=== PATIENT | male | born 1945 | race Caucasian/White ===

== ENCOUNTER 2019-05-09 07:26 | Outpatient (CLI) | payer MEDICARE, BC ==
--- NOTE | 2019-05-09 08:58 | CT ---
CT THORAX NONCONTRAST: (Low dose screening) DATE: 05/09/2019 HISTORY: 74-year-old male with history of smoking for 50 years. COMPARISON: none FINDINGS: There are numerous tiny noncalcified bilateral pulmonary nodules scattered bilaterally in the upper a nd lower lobes, at least 16. Most are benign based on their very small size (a few millimeters) and/or shapes. A few are intrapulmonary lymph nodes. One of the larger 1's, measuring approximately 1 2 x 12 x 5 mm at the central base of the left lower lobe, broadly abutting the left hemidiaphragm, appears benign because of its shape. A couple of pulmonary nodules that appear to have irregular lisandro ins on the axial images, one in each upper lobe anterior segment, appear to be flattened in the craniocaudal dimension on the coronal and sagittal images, and therefore do not appear suspicious. Th ere are numerous tiny subpleural blebs. A few small right basilar bullae. No cardiomegaly. Ectasia and tortuosity of thoracic aorta. Heavily calcified LAD, ramus intermedius, left main, LCx, and RCA. No mediastinal lymphadenopathy. Trachea and main bronchi are patent and clear. IMPRESSION: 1) lung rads category 2. Benign appearance. Less than 1% chance of malignancy. 2) at least mild paraseptal emphysema. 3) recommend continued annual low dose screening CT. 4) coronary atherosclerotic disease due to calcified coronary lesion ICD-10: I 25.84
== END 2019-05-09 07:27 | disposition home or self-care (01) ==
LOC: CT 07:26
PROVIDERS: ATTEND Family Medicine Sports Medicine
DX: Z87.891 Personal history of nicotine dependence (principal); I25.10 Atherosclerotic heart disease of native coronary artery without angina pectoris
CPT/HCPCS: G0297

== ENCOUNTER 2021-09-20 07:21 | Outpatient (CLI) | payer MEDICARE, BC ==
[2021-09-20] MEDS ORDERED: Iopamidol-370 76% 500 ML 1 ML ONE (10:28)
== END 2021-09-20 07:22 | disposition home or self-care (01) ==
LOC: BICCT 07:21
PROVIDERS: ATTEND Urology
DX: C67.4 Malignant neoplasm of posterior wall of bladder (principal)
CPT/HCPCS: 74178; Q9967

== ENCOUNTER 2024-08-22 14:27 | Inpatient (IN) | payer BC, MEDICARE ==
[~2024-08-22 14:27] MED LIST: Iopamidol-370 76% 500 ML MDV (1 ML CHARGE) ONE
[2024-08-22 16:05] LABS: #Basophils 0.03 10x3/uL (0.0-0.2); %Basophils 0.5 % (0.0-1.0); %Eosinophils 8.2 % (0.0-10.0); %Lymphocytes 13.9 % (21.0-51.0); %Monocytes 8.2 % (0.0-10.0); %Neutrophils 68.9 % (42.0-75.0); Hemoglobin 12.1 g/dL (14.0-18.0); Mean Corpuscular HGB CONC 31.8 g/dL (32.0-36.0); Mean Corpuscular Hemoglobin 30.7 pg (27.0-31.0); Mean Corpuscular Volume 96.4 fL (78.0-98.0); Platelet Count 190 10x3/uL (130-400); RBC Distribution Width 15.3 % (11.5-14.5); Red Blood Cell (RBC) Count 3.94 mill/uL (4.70-6.10)
[2024-08-22 16:14] LABS: ALT (SGPT) 19 U/L (8-55); AST (SGOT) 17 U/L (5-34); Albumin 3.6 g/dL (3.4-4.8); Alkaline Phosphatase 98 U/L (40-110); Anion Gap 13 mmol/L (10-20); BUN (Urea Nitrogen) 21 mg/dL (8.4-25.7); Bilirubin, Total 0.3 mg/dL (0.2-1.2); Calc. Creatinine Clearance 0 mL/min (70-130); Calcium 9.3 mg/dL (7.8-10.44); Carbon Dioxide 24 mmol/L (23-31); Chloride 107 mmol/L (98-107); Estimated GFR 66; Globulin 4.2 g/dL (2.4-3.5); Glucose 108 mg/dL (83-110); Potassium 4.6 mmol/L (3.5-5.1); Protein, Total 7.8 g/dL (5.8-8.1); Sodium 139 mmol/L (136-145)
[2024-08-22 16:18] LABS: INR-International Normal Ratio 1.1; PTT 33.3 sec (22.9-36.1); Prothrombin Time 14.6 sec (12.0-14.7)
[2024-08-22 16:20] LABS: Troponin I 0.058 ng/mL (< 0.028)
[2024-08-22] MEDS ORDERED: Acetaminophen 650 MG Suppository PR PRN (16:26)
[2024-08-22] MEDS ORDERED: hydrALAZINE 20 MG/ML VIAL SLOW IVP PRN (16:26)
[2024-08-22] MEDS ORDERED: Acetaminophen 325 MG TAB PO PRN (16:26)
[2024-08-22] MEDS ORDERED: Labetalol HCl 100 MG/20 ML VIAL SLOW IVP PRN (16:26)
[2024-08-22] MEDS ORDERED: Ondansetron ODT 4 MG TAB PO PRN (16:26)
[2024-08-22 16:47] LABS: Magnesium 2.2 mg/dL (1.6-2.6)
[2024-08-22] MEDS: Furosemide 20 MG (2 mL) VIAL SLOW IVP SCH (19:29)
[2024-08-22 20:05] LABS: Bacteria/HPF None Seen HPF (None Seen); Bilirubin Negative (Negative); Blood, Urine 1+ (Negative); CAUTI Indications for Culture Alt mental st,lethar; Clarity Clear (Clear); Glucose, Urine (Dipstick) Normal (Negative); Ketone, Urine Negative (Negative); Leukocyte Negative Leu/uL (Negative); Nitrite Negative (Negative); Protein, Urine (Dipstick) Negative (Neg-Trace); Specific Gravity, Urine 1.033 (1.002-1.036); Squamous Epithelial 0-3 HPF (0-3); Urobilinogen Normal mg/dL (Less than 2)
[2024-08-22 20:11] LABS: Urine Culture Reflex No No
[2024-08-22] MEDS: Amiodarone 200 MG TAB PO SCH (20:45)
[2024-08-22] MEDS: Metoprolol Tartrate 25 MG TAB PO SCH (20:45)
[2024-08-22] MEDS: Famotidine 20 MG TAB PO SCH (20:46)
[2024-08-22] MEDS: Cilostazol 100 MG TAB PO SCH (20:47)
[2024-08-22 21:10] VITALS: BMI 26.0
[2024-08-23 00:34] LABS: Hematocrit 34.7 % (42.0-52.0); Hemoglobin 11.5 g/dL (14.0-18.0)
[2024-08-23 01:57] LABS: Bacteria/HPF None Seen HPF (None Seen); Bilirubin Negative (Negative); Blood, Urine 3+ (Negative); CAUTI Indications for Culture Acute Hematuria; Clarity Extra Turbid (Clear); Glucose, Urine (Dipstick) Normal (Negative); Ketone, Urine Negative (Negative); Leukocyte 25 Leu/uL (Negative); Nitrite Negative (Negative); Protein, Urine (Dipstick) 100 mg/dL (Neg-Trace); RBC/HPF Greater than 50 HPF (0-3); Specific Gravity, Urine 1.013 (1.002-1.036); Squamous Epithelial None Seen HPF (0-3); Urobilinogen Normal mg/dL (Less than 2); pH, Urine 6.5 (5.0-9.0)
[2024-08-23 02:00] LABS: Urine Culture Reflex No No
[2024-08-23 03:49] LABS: #Basophils 0.04 10x3/uL (0.0-0.2); %Basophils 0.6 % (0.0-1.0); %Lymphocytes 11.4 % (21.0-51.0); %Monocytes 7.8 % (0.0-10.0); %Neutrophils 71.9 % (42.0-75.0); Hemoglobin 11.2 g/dL (14.0-18.0); Mean Corpuscular HGB CONC 32.9 g/dL (32.0-36.0); Mean Corpuscular Hemoglobin 30.1 pg (27.0-31.0); Mean Corpuscular Volume 91.4 fL (78.0-98.0); Mean Platelet Volume 8.9 fL (7.4-10.4); Platelet Count 166 10x3/uL (130-400); RBC Distribution Width 15.3 % (11.5-14.5); Red Blood Cell (RBC) Count 3.72 mill/uL (4.70-6.10)
[2024-08-23 04:10] LABS: Hemoglobin A1c 5.6 % (4.0-6.0)
[2024-08-23 04:11] LABS: Troponin I 0.073 ng/mL (< 0.028)
[2024-08-23 04:13] LABS: Anion Gap 13 mmol/L (10-20); BUN (Urea Nitrogen) 18 mg/dL (8.4-25.7); Calc. Creatinine Clearance 72 mL/min (70-130); Carbon Dioxide 20 mmol/L (23-31); Cardiac Risk 2.2 (Less than 4.5); Chloride 107 mmol/L (98-107); Cholesterol 82 mg/dl (< 200 Desired); Estimated GFR 71; Glucose 112 mg/dL (83-110); HDL Cholesterol 38 mg/dL (>60 Neg Risk); LDL Cholesterol, Calculated 31 mg/dL; Magnesium 2.1 mg/dL (1.6-2.6); Potassium 3.7 mmol/L (3.5-5.1); Sodium 136 mmol/L (136-145); Triglycerides 66 mg/dL (Less than 150)
[2024-08-23] MEDS: Furosemide 20 MG (2 mL) VIAL SLOW IVP SCH (06:15)
[2024-08-23] MEDS: Clopidogrel Bisulfate 75 MG TAB PO SCH (09:50)
[2024-08-23] MEDS: Atorvastatin Calcium 40 MG TAB PO SCH (09:50)
[2024-08-23] MEDS: Tamsulosin HCl 0.4 MG CAP PO SCH (09:50)
[2024-08-23] MEDS: Aspirin 81 mg Enteric Coated Tablet PO SCH (09:50)
[2024-08-23] MEDS: Enoxaparin 100 MG (1 mL) SYRINGE SC SCH ×2 (10:51→20:32)
[2024-08-23] MEDS ORDERED: Amiodarone 200 MG TAB PO SCH (21:00)
[2024-08-23] MEDS ORDERED: Metoprolol Tartrate 25 MG TAB PO SCH (21:00)
[2024-08-24 04:03] LABS: #Basophils 0.04 10x3/uL (0.0-0.2); %Basophils 0.6 % (0.0-1.0); %Eosinophils 6.2 % (0.0-10.0); %Lymphocytes 13.4 % (21.0-51.0); %Monocytes 8.7 % (0.0-10.0); %Neutrophils 70.8 % (42.0-75.0); Hemoglobin 11.9 g/dL (14.0-18.0); Mean Corpuscular HGB CONC 33.1 g/dL (32.0-36.0); Mean Corpuscular Volume 93.8 fL (78.0-98.0); Mean Platelet Volume 8.8 fL (7.4-10.4); Platelet Count 168 10x3/uL (130-400); RBC Distribution Width 15.4 % (11.5-14.5); Red Blood Cell (RBC) Count 3.84 mill/uL (4.70-6.10)
[2024-08-24 04:14] LABS: Anion Gap 13 mmol/L (10-20); BUN (Urea Nitrogen) 16 mg/dL (8.4-25.7); Calc. Creatinine Clearance 75 mL/min (70-130); Carbon Dioxide 21 mmol/L (23-31); Chloride 105 mmol/L (98-107); Estimated GFR 77; Glucose 112 mg/dL (83-110); Potassium 3.9 mmol/L (3.5-5.1); Sodium 135 mmol/L (136-145)
[2024-08-24] MEDS: Furosemide 20 MG (2 mL) VIAL SLOW IVP SCH (08:58)
[2024-08-24] MEDS: Sodium Chloride 0.9% 1,000 ML IV SCH (11:25)
[2024-08-24] MEDS: Polyethylene Glycol 3350 17 GM Packet PO SCH (15:04)
[2024-08-25 04:33] LABS: #Basophils Less than 0.03 10x3/uL (0.0-0.2); %Basophils 0.3 % (0.0-1.0); %Eosinophils 6.1 % (0.0-10.0); %Lymphocytes 14.7 % (21.0-51.0); %Monocytes 8.3 % (0.0-10.0); %Neutrophils 70.3 % (42.0-75.0); Hematocrit 32.8 % (42.0-52.0); Mean Corpuscular HGB CONC 33.5 g/dL (32.0-36.0); Mean Corpuscular Hemoglobin 30.4 pg (27.0-31.0); Mean Corpuscular Volume 90.6 fL (78.0-98.0); Mean Platelet Volume 8.8 fL (7.4-10.4); Platelet Count 160 10x3/uL (130-400); RBC Distribution Width 15.2 % (11.5-14.5); Red Blood Cell (RBC) Count 3.62 mill/uL (4.70-6.10)
[2024-08-25 04:49] LABS: Anion Gap 12 mmol/L (10-20); BUN (Urea Nitrogen) 17 mg/dL (8.4-25.7); Calc. Creatinine Clearance 74 mL/min (70-130); Calcium 8.9 mg/dL (7.8-10.44); Carbon Dioxide 22 mmol/L (23-31); Chloride 103 mmol/L (98-107); Estimated GFR 77; Glucose 118 mg/dL (83-110); Potassium 3.8 mmol/L (3.5-5.1); Sodium 133 mmol/L (136-145)
[2024-08-25] MEDS: Polyethylene Glycol 3350 17 GM Packet PO SCH (10:11)
[2024-08-25] MEDS: Amiodarone 200 MG TAB PO SCH (10:11)
[2024-08-25] MEDS ORDERED: FLU (Fluad Triv) TS24-25 (65UP)/MF59C/PF 45 MCG/0.5 ML Syringe IM ONE (20:15)
[2024-08-26 05:29] LABS: #Basophils 0.03 10x3/uL (0.0-0.2); %Basophils 0.4 % (0.0-1.0); %Eosinophils 6.4 % (0.0-10.0); %Lymphocytes 12.6 % (21.0-51.0); %Monocytes 7.8 % (0.0-10.0); %Neutrophils 72.2 % (42.0-75.0); Hematocrit 31.4 % (42.0-52.0); Hemoglobin 10.2 g/dL (14.0-18.0); Mean Corpuscular HGB CONC 32.5 g/dL (32.0-36.0); Mean Corpuscular Hemoglobin 30.1 pg (27.0-31.0); Mean Corpuscular Volume 92.6 fL (78.0-98.0); Mean Platelet Volume 8.8 fL (7.4-10.4); Platelet Count 160 10x3/uL (130-400); RBC Distribution Width 15.2 % (11.5-14.5); Red Blood Cell (RBC) Count 3.39 mill/uL (4.70-6.10)
[2024-08-26 05:40] LABS: Anion Gap 13 mmol/L (10-20); BUN (Urea Nitrogen) 15 mg/dL (8.4-25.7); Calc. Creatinine Clearance 80 mL/min (70-130); Calcium 8.6 mg/dL (7.8-10.44); Carbon Dioxide 21 mmol/L (23-31); Chloride 105 mmol/L (98-107); Estimated GFR 85; Glucose 112 mg/dL (83-110); Potassium 3.8 mmol/L (3.5-5.1); Sodium 135 mmol/L (136-145)
[2024-08-26] MEDS ORDERED: Ketamine In 0.9 % NaCl 50 MG/5 ML SYRINGE ONE (07:57)
[2024-08-26] MEDS ORDERED: PROPOFOL 200 MG/20 ML VIAL ONE (08:03)
[2024-08-26] MEDS ORDERED: Lidocaine 1% PF 5 ML VIAL ONE (08:03)
[2024-08-27 04:40] LABS: #Basophils 0.03 10x3/uL (0.0-0.2); %Basophils 0.4 % (0.0-1.0); %Eosinophils 6.3 % (0.0-10.0); %Lymphocytes 10.1 % (21.0-51.0); %Monocytes 7.7 % (0.0-10.0); %Neutrophils 75.2 % (42.0-75.0); Hematocrit 31.2 % (42.0-52.0); Mean Corpuscular HGB CONC 32.1 g/dL (32.0-36.0); Mean Corpuscular Hemoglobin 30.1 pg (27.0-31.0); Mean Platelet Volume 9.3 fL (7.4-10.4); Platelet Count 164 10x3/uL (130-400); RBC Distribution Width 15.3 % (11.5-14.5); Red Blood Cell (RBC) Count 3.32 mill/uL (4.70-6.10)
[2024-08-27 04:56] LABS: Anion Gap 13 mmol/L (10-20); BUN (Urea Nitrogen) 15 mg/dL (8.4-25.7); Calc. Creatinine Clearance 73 mL/min (70-130); Calcium 8.8 mg/dL (7.8-10.44); Carbon Dioxide 21 mmol/L (23-31); Chloride 105 mmol/L (98-107); Estimated GFR 77; Glucose 107 mg/dL (83-110); Potassium 3.8 mmol/L (3.5-5.1); Sodium 135 mmol/L (136-145)
[2024-08-27 08:35] VITALS: BP 121/62; TEMP 98.1
== END 2024-08-27 11:33 | disposition home or self-care (01) | DRG 69 ==
LOC: ERS 14:27 → 2SE 16:24 → OBSVTOIN 18:28
PROVIDERS: ADMIT Internal Medicine; ATTEND Internal Medicine
PROC: B24BZZ4 Ultrasonography of Heart with Aorta, Transesophageal (ICD-10-PCS; principal; 2024-08-26)
DX: G45.9 Transient cerebral ischemic attack, unspecified (principal); I97.89 Other postprocedural complications and disorders of the circulatory system, not elsewhere classified; I25.10 Atherosclerotic heart disease of native coronary artery without angina pectoris; Z95.1 Presence of aortocoronary bypass graft; E78.5 Hyperlipidemia, unspecified; I73.9 Peripheral vascular disease, unspecified; Z88.8 Allergy status to other drugs, medicaments and biological substances; I50.9 Heart failure, unspecified; I48.0 Paroxysmal atrial fibrillation; Z79.82 Long term (current) use of aspirin; Z79.899 Other long term (current) drug therapy; C67.9 Malignant neoplasm of bladder, unspecified
CPT/HCPCS: 36415; 36416; 70450; 70496; 70498; 70551; 71045; 71275; 74176; 80048; 80053; 80061; 81001; 83036; 83735; 83880; 84443; 84484; 85025; 85610; 85730; 93005; 93306; 93798; J1650; J1940; J2704; J3490; J7030; Q9967